=== PATIENT | male | born 1980 | race Native Hawaiian/Other Pacific Islander ===

== ENCOUNTER 2018-03-15 12:53 | Emergency (ER) | payer OTHER ==
[~2018-03-15] VITALS: Ht 180.3 cm; Wt 69.9 kg
[2018-03-15 14:27] VITALS: TEMP 98.6
[2018-03-15 17:17] LABS: PLATELET COUNT 257 K/uL (142-355)
[2018-03-15 17:25] LABS: POTASSIUM 3.6 mmol/L (3.6-5.2)
[2018-03-15 18:23] VITALS: BP 130/70
== END 2018-03-15 18:23 | disposition home or self-care (01) ==
LOC: ED 12:53
PROVIDERS: Emergency Medicine
DX: R56.9 Unspecified convulsions (principal); R53.1 Weakness; R00.1 Bradycardia, unspecified
CPT/HCPCS: 36415; 80053; 85027; 93005; 99283